=== PATIENT | male | born 1960 | race Caucasian/White ===

== ENCOUNTER 2023-11-06 09:24 | Emergency (ER) | payer OTHER ==
[2023-11-06 09:44] VITALS: RESP 18; TEMP 98.6
--- NOTE | 2023-11-06 10:47 | ED ---
General Adult HPI - General Source: patient, RN notes reviewed Mode of arrival: ambulatory Limitations: no limitations <Angel Jamison - Last Filed: 11/06/23 14:50> <Dimas Jerome - Last Filed: 11/06/23 17:32> - General Source: RN notes reviewed, old records reviewed Mode of arrival: ambulatory Limitations: no limitations <Ace Carreon - Last Filed: 11/12/23 19:52> - General Chief complaint: Abdominal Pain Stated complaint: Constipation Time Seen by Provider: 11/06/23 09:43 - History of Present Illness Initial comments: Patient is a 63-year-old male present to the emergency department with concerns for constipation. Last bowel movement was around 4 days ago. Patient was struggling in the bathroom at that time and question if there was some bleeding. Patient does take Motrin several times daily for the past year. ( Patient is advised against this.) Patient does have some discomfort in the rectal region. No known hemorrhoids. No other episodes of bleeding. (Angel Jamison) - Related Data Home Medications Medication Instructions Recorded Confirmed Acetaminophen-Codeine 300-30mg 1 - 2 tab PO Q4-6H PRN 11/06/23 11/06/23 [Tylenol w/codeine #3] Docusate [Colace] 100 mg PO DAILY PRN 11/06/23 11/06/23 Ibuprofen [Motrin] 800 mg PO Q8H PRN 11/06/23 11/06/23 Ketoconazole [Nizoral] 400 mg PO DAILY 11/06/23 11/06/23 Moxifloxacin HCl [Avelox] 400 mg PO DAILY 11/06/23 11/06/23 Mupirocin 2% Oint [Bactroban 2% 1 applic TOPICAL BID 11/06/23 11/06/23 Oint] Omeprazole 20 mg PO DAILY PRN 11/06/23 11/06/23 traMADol HCL 100 mg PO Q6H PRN 11/06/23 11/06/23 Allergies Allergy/AdvReac Type Severity Reaction Status Date / Time No Known Allergies Allergy Verified 11/06/23 12:57 Review of Systems ROS Other: All systems not noted in ROS Statement are negative. Constitutional: Denies: fever Eyes: Denies: eye pain ENT: Denies: ear pain Respiratory: Denies: cough Cardiovascular: Denies: chest pain Endocrine: Denies: fatigue Gastrointestinal: Reports: as per HPI, constipation Genitourinary: Denies: dysuria Musculoskeletal: Denies: back pain Skin: Reports: other (Chronic wound of the ankle that is improving) <ShaheenAngel - Last Filed: 11/06/23 14:50> ROS Other: All systems not noted in ROS Statement are negative. <Dimas Jerome - Last Filed: 11/06/23 17:32> ROS Other: All systems not noted in ROS Statement are negative. <Ace Carreon - Last Filed: 11/12/23 19:52> ROS Statement: Those systems with pertinent positive or pertinent negative responses have been documented in the HPI. Past Medical History Additional Past Medical History / Comment(s): fungal infection to right leg Past Surgical History: No Surgical Hx Reported <JamisonAngel - Last Filed: 11/06/23 14:50> General Exam Limitations: no limitations General appearance: alert, in no apparent distress Head exam: Present: normocephalic Eye exam: Present: normal appearance Neck exam: Present: normal inspection Respiratory exam: Present: normal lung sounds bilaterally Cardiovascular Exam: Present: regular rate, normal rhythm GI/Abdominal exam: Present: soft. Absent: distended, tenderness Rectal exam: Present: fecal impaction (High in the rectum). Absent: black stool, bloody stool Extremities exam: Absent: tenderness Neurological exam: Present: alert Psychiatric exam: Present: normal affect, normal mood Skin exam: Present: normal color <ShaheenAngel - Last Filed: 11/06/23 14:50> General appearance: alert, in no apparent distress Head exam: Present: atraumatic, normocephalic, normal inspection Eye exam: Present: normal appearance, PERRL, EOMI. Absent: scleral icterus, conjunctival injection, periorbital swelling ENT exam: Present: normal exam, mucous membranes moist Neck exam: Present: normal inspection. Absent: tenderness, meningismus, lymphadenopathy Respiratory exam: Present: normal lung sounds bilaterally. Absent: respiratory distress, wheezes, rales, rhonchi, stridor Cardiovascular Exam: Present: regular rate, normal rhythm, normal heart sounds. Absent: systolic murmur, diastolic murmur, rubs, gallop, clicks GI/Abdominal exam: Present: soft, normal bowel sounds. Absent: distended, tenderness, guarding, rebound, rigid Extremities exam: Present: normal inspection, full ROM, normal capillary refill. Absent: tenderness, pedal edema, joint swelling, calf tenderness Back exam: Present: normal inspection Neurological exam: Present: alert, oriented X3, CN II-XII intact Psychiatric exam: Present: normal affect, normal mood Skin exam: Present: warm, dry, intact, normal color. Absent: rash <Ace Carreon - Last Filed: 11/12/23 19:52> Course <Ace Carreon - Last Filed: 11/12/23 19:52> Vital Signs 11/06/23 11/06/23 11/06/23 09:34 10:00 14:00 Temperature 98.6 F Pulse Rate 96 72 70 Respiratory 18 20 18 Rate Blood Pressure 142/87 128/78 122/76 O2 Sat by Pulse 98 99 98 Oximetry 11/06/23 11/06/23 16:00 17:34 Temperature Pulse Rate 74 70 Respiratory 18 18 Rate Blood Pressure 135/80 126/70 O2 Sat by Pulse 97 99 Oximetry - Reevaluation(s) Reevaluation #1: Medical records reviewed (Ace Carreon) Reevaluation #2: Patient symptoms improved (Ace Carreon) Reevaluation #3: Patient informed of results and questions answered (Ace Carreon) Medical Decision Making - Lab Data Result diagrams: 11/06/23 10:46 11/06/23 10:46 <Angel Jamison - Last Filed: 11/06/23 14:50> - Lab Data Result diagrams: 11/06/23 10:46 11/06/23 10:46 <Dimas Jerome - Last Filed: 11/06/23 17:32> - Lab Data Result diagrams: 11/06/23 10:46 11/06/23 10:46 - Radiology Data Radiology results: report reviewed (CT of the abdomen pelvis x-ray KUB negative for acute disease), image reviewed <Ace Carreon - Last Filed: 11/12/23 19:52> - Medical Decision Making Was pt. sent in by a medical professional or institution (Dr., PA, [facility], urgent care, hospital, or senior living...) When possible be specific @ -No Did you speak to anyone other than the patient for history (EMS, parent, family, police, friend...)? What history was obtained from this source @ -No Did you review nursing and triage notes (agree or disagree)? Why? @ -I reviewed and agree with nursing and triage notes Were old charts reviewed (outside hosp., previous admission, EMS record, old EKG, old radiological studies, urgent care reports/EKG's, senior living records)? Report findings @ -Patient's previous medications were reviewed including pain medications and antibiotics and antifungals Differential Diagnosis (chest pain, altered mental status, abdominal pain women, abdominal pain men, vaginal bleeding, weakness, fever, dyspnea, syncope, headache, dizziness, GI bleed, back pain, seizure, CVA, palpatations, mental health, musculoskeletal)? @ -Differential Abdominal Pain Men: Appendicitis, cholecystitis, diverticulosis, ischemic bowel, pancreatitis, hepatitis, UTI, gastroenteritis, AAA, incarcerated hernia, bowel obstruction, constipation, inflammatory bowel, hepatitis, peptic ulcer disease, splenic infarction, perforated viscus, testicular torsion, this is not meant to be an all-inclusive list EKG interpreted by me (3pts min.). @ -As above X-rays interpreted by me (1pt min.). @ -X-ray shows no acute process CT interpreted by me (1pt min.). @ -CT scan pending U/S interpreted by me (1pt. min.). @ -None done What testing was considered but not performed or refused? (CT, X-rays, U/S, labs)? Why? @ -CT scan was ordered What meds were considered but not given or refused? Why? @ -None Did you discuss the management of the patient with other professionals (professionals i.e. SCARLETT Moran, [facility], lab, RT, psych nurse, social and political studies professor, installment loan collector, teacher, fiscal officer, clinical case manager)? Give summary @ -No Was smoking cessation discussed for >3mins.? @ -No Was critical care preformed (if so, how long)? @ -No Were there social determinants of health that impacted care today? How? (Homelessness, low income, unemployed, alcoholism, drug addiction, transportation, low edu. Level, literacy, decrease access to med. care, usp, rehab)? @ -No Was there de-escalation of care discussed even if they declined (Discuss DNR or withdrawal of care, Hospice)? DNR status @ -No What co-morbidities impacted this encounter? (DM, HTN, Smoking, COPD, CAD, Cancer, CVA, ARF, Chemo, Hep., AIDS, mental health diagnosis, sleep apnea, morbid obesity)? @ -None Was patient admitted / discharged? Hospital course, mention meds given and route, prescriptions, significant lab abnormalities, going to OR and other pertinent info. @ -Patient presents with constipation.. Patient does have stool high in the rectal vault. No improvement with first enema. Patient does have white blood cell count of 17 however has been recently on steroids within the past week. Patient was receptive to CT scan following this and this was ordered and pending. Patient will be provided additional allergy. Case will be endorsed to Dr. Marte at shift change. Undiagnosed new problem with uncertain prognosis? @ -No Drug Therapy requiring intensive monitoring for toxicity (Heparin, Nitro, Insulin, Cardizem)? @ -No Were any procedures done? @ -No Diagnosis/symptom? @ -Abdominal pain, chronic leg wound, constipation Acute, or Chronic, or Acute on Chronic? @ -Acute, chronic, acute Uncomplicated (without systemic symptoms) or Complicated (systemic symptoms)? @ -Default Side effects of treatment? @ -No Exacerbation, Progression, or Severe Exacerbation? @ -No Poses a threat to life or bodily function? How? (Chest pain, [place], [place], pneumonia, PE, COPD, DKA, ARF, appy, cholecystitis, CVA, Diverticulitis, Homicidal, Suicidal, threat to staff... and all critical care pts) @ -No (Angel Jamison) Patient care signed out to me by previous shift physician, Dr. Jamison. Briefly, patient is 63-year-old male presents emergency department with rectal pain. Patient also has associated bright red blood per rectum. Plan at signout was to follow-up with pending CT imaging. Vital signs upon arrival reviewed found to be within stable medical addition. Patient was given Dilaudid for pain control. Patient has a leukocytosis 17.8. Metabolic panel shows slight elevation in renal function. So far blood is negative. Patient was given with no resolved. Chest x-ray is nonacute. CT scan showed fecal compaction. Disposition options were discussed with the patient. Patient agreed for manual disimpaction attempt. Large amounts of stools that were hard were removed from the rectal vault. Patient put on the to ilet and encouraged to push to have a bowel movement. 5:32 PM patient states that he had a satisfying bowel movement his symptoms are resolved. Patient requesting discharge. Advised follow-up with primary care doctor. (Dimas Jerome) Patient care signed out to me by previous shift physician, Dr. Jamison. Briefly, patient is 63-year-old male presents emergency department with rectal pain. Patient also has associated bright red blood per rectum. Plan at signout was to follow-up with pending CT imaging. Vital signs upon arrival reviewed found to be within stable medical addition. Patient was given Dilaudid for pain control. Patient has a leukocytosis 17.8. Metabolic panel shows slight elevation in renal function. So far blood is negative. Patient was given with no resolved. Chest x-ray is nonacute. (Ace Carreon) - Lab Data Lab Results 11/06/23 11/06/23 11/06/23 Range/Units 10:46 10:46 10:46 WBC 17.8 H (3.8-10.6) k/uL RBC 4.58 (4.30-5.90) m/uL Hgb 13.1 (13.0-17.5) gm/dL Hct 38.7 L (39.0-53.0) % MCV 84.6 (80.0-100.0) fL MCH 28.6 (25.0-35.0) pg MCHC 33.9 (31.0-37.0) g/dL RDW 13.8 (11.5-15.5) % Plt Count 494 H (150-450) k/uL MPV 8.9 Neutrophils % 85 % Lymphocytes % 7 % Monocytes % 6 % Eosinophils % 0 % Basophils % 0 % Neutrophils # 15.2 H (1.3-7.7) k/uL Lymphocytes # 1.3 (1.0-4.8) k/uL Monocytes # 1.1 H (0-1.0) k/uL Eosinophils # 0.1 (0-0.7) k/uL Basophils # 0.0 (0-0.2) k/uL PT 10.9 (10.0-12.5) sec INR 1.0 (<1.2) APTT 25.3 (22.0-30.0) sec Sodium 136 L (137-145) mmol/L Potassium 4.5 (3.5-5.1) mmol/L Chloride 102 (98-107) mmol/L Carbon Dioxide 19 L (22-30) mmol/L Anion Gap 15 mmol/L BUN 24 H (9-20) mg/dL Creatinine 1.88 H (0.66-1.25) mg/dL Est GFR (CKD-EPI)AfAm 44 (>60 ml/min/1.73 sqM) Est GFR (CKD-EPI)NonAf 38 (>60 ml/min/1.73 sqM) Glucose 122 H (74-99) mg/dL Calcium 10.2 (8.4-10.2) mg/dL Total Bilirubin 1.0 (0.2-1.3) mg/dL AST 29 (17-59) U/L ALT 23 (4-49) U/L Alkaline Phosphatase 119 (38-126) U/L Total Protein 8.3 H (6.3-8.2) g/dL Albumin 4.6 (3.5-5.0) g/dL Amylase 60 (30-110) U/L Lipase 175 (23-300) U/L Stool Occult Blood (Negative) 11/06/23 Range/Units 11:32 WBC (3.8-10.6) k/uL RBC (4.30-5.90) m/uL Hgb (13.0-17.5) gm/dL Hct (39.0-53.0) % MCV (80.0-100.0) fL MCH (25.0-35.0) pg MCHC (31.0-37.0) g/dL RDW (11.5-15.5) % Plt Count (150-450) k/uL MPV Neutrophils % % Lymphocytes % % Monocytes % % Eosinophils % % Basophils % % Neutrophils # (1.3-7.7) k/uL Lymphocytes # (1.0-4.8) k/uL Monocytes # (0-1.0) k/uL Eosinophils # (0-0.7) k/uL Basophils # (0-0.2) k/uL PT (10.0-12.5) sec INR (<1.2) APTT (22.0-30.0) sec Sodium (137-145) mmol/L Potassium (3.5-5.1) mmol/L Chloride (98-107) mmol/L Carbon Dioxide (22-30) mmol/L Anion Gap mmol/L BUN (9-20) mg/dL Creatinine (0.66-1.25) mg/dL Est GFR (CKD-EPI)AfAm (>60 ml/min/1.73 sqM) Est GFR (CKD-EPI)NonAf (>60 ml/min/1.73 sqM) Glucose (74-99) mg/dL Calcium (8.4-10.2) mg/dL Total Bilirubin (0.2-1.3) mg/dL AST (17-59) U/L ALT (4-49) U/L Alkaline Phosphatase (38-126) U/L Total Protein (6.3-8.2) g/dL Albumin (3.5-5.0) g/dL Amylase (30-110) U/L Lipase (23-300) U/L Stool Occult Blood Negative (Negative) Disposition <Angel Jamison - Last Filed: 11/06/23 14:50> Is patient prescribed a controlled substance at d/c from ED?: No Time of Disposition: 17:32 <Dimas Jerome - Last Filed: 11/06/23 17:32> Is patient prescribed a controlled substance at d/c from ED?: No <Ace Carreon - Last Filed: 11/12/23 19:52> Clinical Impression: Constipation, Abdominal colic Disposition: HOME SELF-CARE Condition: Good Instructions (If sedation given, give patient instructions): Constipation (ED) Referrals: Jenna Paul MD [Primary Care Provider] - 1-2 days
[2023-11-06] MEDS: SODIUM CHLORIDE 0.9% 1,000 ML IV STA (11:02)
[2023-11-06] MEDS: PANTOPRAZOLE 40 MG/10 ML VIAL IVP STA (11:03)
--- NOTE | 2023-11-06 11:06 | XR ---
EXAMINATION TYPE: XR KUB DATE OF EXAM: 11/06/2023 COMPARISON: None HISTORY: Lower abdominal pain TECHNIQUE: AP abdomen upright and supine views FINDINGS: No free air is evident. Nonspecific bowel gas is present. Small bowel loops as well as colo n containing air. No suspicious differential air is evident. No mass effect is evident. Psoas margins are normal. Organomegaly is not evident. IMPRESSION: 1. Nonspecific abdomen
[2023-11-06 11:13] LABS: Basophils % (A) 0 %; Eosinophils # (A) 0.1 k/uL (0-0.7); Eosinophils % (A) 0 %; HCT 38.7 % (39.0-53.0); HGB 13.1 gm/dL (13.0-17.5); Lymphocytes # (A) 1.3 k/uL (1.0-4.8); Lymphocytes % (A) 7 %; MCH 28.6 pg (25.0-35.0); MCHC 33.9 g/dL (31.0-37.0); MCV 84.6 fL (80.0-100.0); Mean Platelet Volume 8.9; Monocytes # (A) 1.1 k/uL (0-1.0); Monocytes % (A) 6 %; Neutrophils # (A) 15.2 k/uL (1.3-7.7); Neutrophils % (A) 85 %; Platelet Count 494 k/uL (150-450); RBC 4.58 m/uL (4.30-5.90); RDW 13.8 % (11.5-15.5); WBC 17.8 k/uL (3.8-10.6)
[2023-11-06 11:24] LABS: ALT 23 U/L (4-49); AST 29 U/L (17-59); African American GFR (CKD) 44 (>60 ml/min/1.73 sqM); Albumin 4.6 g/dL (3.5-5.0); Alkaline Phosphatase 119 U/L (38-126); Amylase 60 U/L (30-110); Anion Gap 15 mmol/L; Blood Urea Nitrogen 24 mg/dL (9-20); Calcium 10.2 mg/dL (8.4-10.2); Carbon Dioxide 19 mmol/L (22-30); Chloride 102 mmol/L (98-107); Glucose 122 mg/dL (74-99); Lipase 175 U/L (23-300); Non-African American GFR(CKD) 38 (>60 ml/min/1.73 sqM); Partial Thromboplastin Time 25.3 sec (22.0-30.0); Potassium 4.5 mmol/L (3.5-5.1); Prothrombin Time 10.9 sec (10.0-12.5); Sodium 136 mmol/L (137-145); Total Protein 8.3 g/dL (6.3-8.2)
[2023-11-06] MEDS: LACTULOSE 20 GM/30 ML CUP PO ONE (13:49)
[2023-11-06] MEDS: HYDROmorphone 1 MG/ML 1 ML SYRINGE IVP STA ×2 (14:25→17:08)
--- NOTE | 2023-11-06 15:17 | CT ---
EXAMINATION TYPE: CT abdomen pelvis wo con CT DLP: 558.6 mGycm, Automated exposure control for dose reduction was used. DATE OF EXAM: 11/06/2023 2:53 PM COMPARISON: None CLINICAL INDICATION:Male, 63 years old with history of abp; Abdominal pain, possible bowel obstructio n TECHNIQUE: Axial CT abdomen pelvis wo con;Sagittal and coronal reformats were created on a separate workstation. Contrast used: mL of , (none if empty) Oral contrast used: without Oral Contrast (none if empty) FINDINGS: LOWER CHEST: Unremarkable ABDOMEN LIVER: Unremarkable GALLBLADDER AND BILE DUCTS: Unremarkable. PANCREAS: Unremarkable. SPLEEN: Unremarkable. ADRENAL GLANDS: Unremarkable. KIDNEYS AND URETERS: No evidence of hydronephrosis or renal calculus. The ureters are unremarkable. Right renal cyst. PELVIS BLADDER: Unremarkable REPRODUCTIVE: Unremarkable. ABDOMEN & PELVIS STOMACH AND BOWEL: No evidence of bowel obstruction. Large amount stool in the colon with fecaloma in the rectum measuring up to 7.8 cm in transverse dimension. PERITONEUM/RETROPERITONEUM: No evidence of pneumoperitoneum or free fluid. VASCULATURE: No evidence of aortic aneurysm. MUSCULOSKELETAL: No acute osseous abnormalities LYMPH NODES: No gross evidence for lymphadenopathy. SOFT TISSUE/ABDOMINAL WALL: Unremarkable IMPRESSION: 1. No evidence for bowel obstruction. Large fecaloma in the rectum. Fecal disimpaction recommended. 2. No evidence for acute abdominal process otherwise.
[2023-11-06] MEDS: LIDOCAINE VISCOUS 2% 15 ML CUP MUCOUS MEM ONE (17:09)
[2023-11-06 18:02] VITALS: BP 126/70; PULSE 70
== END 2023-11-06 17:37 | disposition home or self-care (01) ==
LOC: EC 09:24
DX: K59.00 Constipation, unspecified (principal)
CPT/HCPCS: 36415; 80053; 82150; 83690; 85025; 85610; 85730; 82272; 87070; 87205; 74018; 74176; 99285; 96374; 96375; 96361; J1170; C9113; 96376